=== PATIENT | female | born 1985 | race African-American/Black ===

== ENCOUNTER 2019-08-15 14:34 | Emergency (ER) | payer MEDICAID, OTHER ==
[~2019-08-15] VITALS: Ht 175.3 cm; Wt 103.0 kg
[2019-08-15] MEDS ORDERED: MAGNESIUM/ALUMINUM HYDROXIDE/SIMETHICONE 30ML UDC PO ONE (16:15)
[2019-08-15] MEDS ORDERED: VISCOUS LIDOCAINE 2% 15 ML UDC PO ONE (16:15)
[2019-08-15] MEDS ORDERED: KETOROLAC 60MG/2ML VIAL IM ONE (16:15)
[2019-08-15] MEDS ORDERED: HYDROCODONE/ACETAMINOPHEN 5/325MG TABLET PO ONE (18:00)
[2019-08-15] MEDS ORDERED: SODIUM CHLORIDE 0.9% 1,000 ML IV ONE (18:55)
[2019-08-15 19:00] VITALS: BP 138/89
[2019-08-15] MEDS ORDERED: MORPHINE SULFATE 4 MG/ML CPJ (NOT FOR IM USE) IV ONE (19:00)
[2019-08-15] MEDS ORDERED: CLINDAMYCIN 600 MG in DEXTROSE 5% WATER 50 ML IV ONE (19:00)
[2019-08-15] MEDS ORDERED: DEXAMETHASONE 10 MG/ML VIAL IV ONE (19:00)
[2019-08-15] MEDS ORDERED: CLINDAMYCIN 600MG PREMIX 50 ML IV SCH (19:30)
[2019-08-15 20:52] LABS: BASOPHILS % 0.6 % (0.0-2.0); EOSINOPHILS % 2.6 % (0.0-5.0); HEMATOCRIT. 40.6 % (36.0-48.0); HEMOGLOBIN. 13.8 g/dL (12.0-16.0); LYMPHOCYTES % 39.5 % (20.0-50.0); MEAN CORPUSCULAR HEMOGLOBIN 29.4 pg (28.0-32.0); MEAN CORPUSCULAR VOLUME 86.6 fL (81.0-99.0); MEAN PLATELET VOLUME 7.6 fl (7.4-10.4); MONOCYTES % 8.5 % (2.0-8.0); NEUTROPHILS % 48.8 % (40.0-76.0); PLATELET 283 x1000/uL (130-400); RED BLOOD CELL COUNT 4.69 mill/uL (4.2-5.4); RED CELL DISTRIBUTION WIDTH 15.9 % (11.6-14.6)
[2019-08-15 20:55] LABS: CHLORIDE 108 mEq/L (98-107)
== END 2019-08-15 22:49 | disposition home or self-care (01) ==
LOC: ER 14:34
DX: J03.90 Acute tonsillitis, unspecified (principal); F12.10 Cannabis abuse, uncomplicated; F17.210 Nicotine dependence, cigarettes, uncomplicated
CPT/HCPCS: 36415; 70490; 80053; 85025; 96365; 96366; 96372; 96375; 99284; J1100; J1885; J2270; J3490; J7030; J7060

== ENCOUNTER 2020-07-27 17:49 | Emergency (ER) | payer MEDICAID ==
[~2020-07-27] VITALS: Ht 175.3 cm; Wt 85.0 kg
[2020-07-27] MEDS ORDERED: BACITRACIN ZINC OINT UDPKT TOP ONE (18:15)
[2020-07-27] MEDS ORDERED: LIDOCAINE 1%/EPI 1:100,000 10 ML VIAL IJ ONE (18:15)
[2020-07-27] MEDS ORDERED: LIDOCAINE HCL/EPINEPHRINE 1%-EPI 1:100,000 20 ML VIAL INFIL NR (18:33)
[2020-07-27 21:13] VITALS: BP 140/81
== END 2020-07-27 21:14 | disposition home or self-care (01) ==
LOC: ER 17:49
DX: S01.111A Laceration without foreign body of right eyelid and periocular area, initial encounter (principal); F12.10 Cannabis abuse, uncomplicated; X58.XXXA Exposure to other specified factors, initial encounter; Y93.89 Activity, other specified; Y92.89 Other specified places as the place of occurrence of the external cause; Y99.8 Other external cause status
CPT/HCPCS: 70450; 70486; 81025; 99285; J3490

== ENCOUNTER 2020-07-31 12:59 | Emergency (ER) | payer MEDICAID ==
[~2020-07-31] VITALS: Ht 175.3 cm; Wt 77.0 kg
[2020-07-31 13:03] VITALS: BP 149/92
== END 2020-07-31 14:15 | disposition home or self-care (01) ==
LOC: ER 12:59
DX: S01.112D Laceration without foreign body of left eyelid and periocular area, subsequent encounter (principal); F12.10 Cannabis abuse, uncomplicated; Z48.00 Encounter for change or removal of nonsurgical wound dressing; X58.XXXD Exposure to other specified factors, subsequent encounter
CPT/HCPCS: 99281

== ENCOUNTER 2020-08-04 17:18 | Emergency (ER) | payer MEDICAID ==
[~2020-08-04] VITALS: Ht 177.8 cm; Wt 100.0 kg
[2020-08-04 17:26] VITALS: BP 136/78
== END 2020-08-04 17:46 | disposition home or self-care (01) ==
LOC: ER 17:24
DX: Z48.02 Encounter for removal of sutures (principal)
CPT/HCPCS: 99281

== ENCOUNTER 2021-11-03 18:30 | Emergency (ER) | payer MEDICAID ==
[~2021-11-03] VITALS: Ht 175.3 cm; Wt 100.0 kg
[2021-11-03] MEDS ORDERED: IBUPROFEN 600MG TABLET PO STA (18:55)
[2021-11-03] MEDS ORDERED: IBUP-2028 MT (19:34)
[2021-11-03 19:40] VITALS: BP 132/72
== END 2021-11-03 19:42 | disposition home or self-care (01) ==
LOC: ER 18:30
DX: R07.89 Other chest pain (principal); V49.49XA Driver injured in collision with other motor vehicles in traffic accident, initial encounter; Y93.89 Activity, other specified; Y92.89 Other specified places as the place of occurrence of the external cause; Y99.8 Other external cause status; F17.290 Nicotine dependence, other tobacco product, uncomplicated; F12.10 Cannabis abuse, uncomplicated
CPT/HCPCS: 71045; 93005; 99283

== ENCOUNTER 2023-01-13 16:39 | Emergency (ER) | payer MEDICAID ==
[~2023-01-13] VITALS: Ht 172.7 cm; Wt 103.0 kg
[~2023-01-13 16:39] MED LIST: IBUP-2028 MT
[2023-01-13 16:53] VITALS: BP 154/90; PULSE 99; RESP 18; TEMP 98.9
== END 2023-01-13 20:49 | disposition left against medical advice (07) ==
LOC: ER 16:39
DX: Z53.21 Procedure and treatment not carried out due to patient leaving prior to being seen by health care provider (principal)
CPT/HCPCS: 99281

== ENCOUNTER 2023-12-07 12:33 | Emergency (ER) | payer MEDICAID ==
[~2023-12-07] VITALS: Ht 167.6 cm; Wt 99.8 kg
[2023-12-07 13:00] VITALS: BP 157/56; PULSE 72; RESP 16; TEMP 98.4; O2SAT 99
[2023-12-07 14:57] LABS: BASOPHILS % 0.9 % (0.0-2.0); EOSINOPHILS % 2.8 % (0.0-5.0); HEMATOCRIT. 39.4 % (36.0-48.0); HEMOGLOBIN. 13.2 g/dL (12.0-16.0); LYMPHOCYTES % 35.2 % (20.0-50.0); MEAN CORPUSCULAR HEMOGLOBIN 30.2 pg (28.0-32.0); MEAN CORPUSCULAR HGB CONC 33.5 g/dL (31.0-37.0); MEAN CORPUSCULAR VOLUME 90.1 fL (81.0-99.0); MEAN PLATELET VOLUME 8.1 fl (7.4-10.4); MONOCYTES % 7.2 % (2.0-8.0); NEUTROPHILS % 53.9 % (40.0-76.0); PLATELET 269 x1000/uL (130-400); RED BLOOD CELL COUNT 4.38 mill/uL (4.2-5.4); WHITE BLOOD COUNT 6.4 x1000/uL (4.5-11.0)
[2023-12-07 14:59] LABS: CARBON DIOXIDE 27 mEq/L (21-32); CHLORIDE 108 mEq/L (98-107); POTASSIUM 3.9 mEq/L (3.5-5.1); SODIUM 137 mEq/L (136-145)
[2023-12-07 15:00] LABS: CALCIUM 9.7 mg/dL (8.7-10.4)
[2023-12-07 15:04] LABS: CREATININE 0.9 mg/dL (0.6-1.0); GLUCOSE 88 mg/dL (70-105)
[2023-12-07 15:05] LABS: UREA NITROGEN BLOOD 9 mg/dL (9-23)
[2023-12-07 15:06] LABS: ALANINE AMINOTRANSFERASE 12 IU/L (10-49); ALBUMIN 4.3 g/dL (3.2-4.8); ASPARTATE AMINOTRANSFERASE 19 IU/L (<34)
[2023-12-07 15:07] LABS: BILIRUBIN TOTAL 0.4 mg/dL (0.1-1.0); PROTEIN TOTAL 7.2 g/dL (6.0-8.3)
[2023-12-07 15:08] LABS: HCG SCREEN NEGATIVE
[2023-12-07 21:10] LABS: CLARITY URINE CLEAR (CLEAR); COLOR URINE YELLOW (YELLOW); GLUCOSE URINE NEGATIVE (NEGATIVE); KETONES URINE NEGATIVE (NEGATIVE); LEUKOCYTE ESTERASE URINE NEGATIVE (NEGATIVE); NITRITE URINE NEGATIVE (NEGATIVE); OCCULT BLOOD URINE NEGATIVE (NEGATIVE); PROTEIN URINE NEGATIVE (NEGATIVE); SPECIFIC GRAVITY URINE 1.013 (1.005-1.030); UROBILINOGEN URINE 0.2 E.U./dL (0.2-1.0)
== END 2023-12-07 22:10 | disposition home or self-care (01) ==
LOC: ER 12:50
DX: R10.9 Unspecified abdominal pain (principal); F12.10 Cannabis abuse, uncomplicated
CPT/HCPCS: 36415; 74176; 80053; 81003; 84703; 85025; 99284

== ENCOUNTER 2024-05-12 09:55 | Emergency (ER) | payer MEDICAID ==
[~2024-05-12] VITALS: Ht 167.6 cm; Wt 102.1 kg
[2024-05-12 09:58] VITALS: O2SAT 97
[2024-05-12 10:22] VITALS: BP 147/103; PULSE 74; RESP 16; TEMP 98.2; O2SAT 100
[2024-05-12] MEDS ORDERED: KETO15CR2 TP (10:33)
== END 2024-05-12 11:03 | disposition home or self-care (01) ==
LOC: ER 09:55
DX: B35.4 Tinea corporis (principal); F12.10 Cannabis abuse, uncomplicated
CPT/HCPCS: 99283

== ENCOUNTER 2024-06-27 10:41 | Emergency (ER) | payer MEDICAID ==
[~2024-06-27] VITALS: Ht 165.1 cm; Wt 100.0 kg
[~2024-06-27 10:41] MED LIST changes: +KETO15CR2 TP
[2024-06-27 10:46] VITALS: O2SAT 100
[2024-06-27 11:00] VITALS: BP 136/85; PULSE 82; RESP 18; TEMP 97.9; O2SAT 97
== END 2024-06-27 11:25 | disposition home or self-care (01) ==
LOC: ER 10:41
DX: H92.01 Otalgia, right ear (principal); F12.90 Cannabis use, unspecified, uncomplicated
CPT/HCPCS: 99281